=== PATIENT | female | born 1995 | race American Indian/Alaskan Native ===

== ENCOUNTER 2019-11-05 09:51 | Emergency (ER) | payer SELFPAY ==
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
[2019-11-05] MEDS ORDERED: hydrOXYzine PAMOATE 25 MG CAP PO ONE (12:58)
[2019-11-05] MEDS ORDERED: dexAMETHasone 4 MG/ML VIAL IM ONE (12:58)
[2019-11-05 15:56] VITALS: BP 132/89
== END 2019-11-05 16:20 | disposition home or self-care (01) ==
LOC: ED 09:51
DX: T78.40XA Allergy, unspecified, initial encounter (principal); L03.211 Cellulitis of face; Z79.899 Other long term (current) drug therapy; X58.XXXA Exposure to other specified factors, initial encounter; Y93.89 Activity, other specified; Y92.89 Other specified places as the place of occurrence of the external cause; Y99.8 Other external cause status
CPT/HCPCS: 96372; 99283; J1100; Q0177